=== PATIENT | male | born 1985 | race Caucasian/White ===

== ENCOUNTER 2022-07-14 21:25 | Emergency (ER) | payer SELFPAY ==
[2022-07-14] MEDS ORDERED: Ketorolac Tromethamine 30 MG/ML VIAL ONE (22:01)
== END 2022-07-14 22:19 | disposition home or self-care (01) ==
LOC: NAV ERS 21:25
DX: R68.84 Jaw pain (principal); F17.210 Nicotine dependence, cigarettes, uncomplicated
CPT/HCPCS: 96372; 99283; J1885